=== PATIENT | male | born 1945 | race Caucasian/White ===

== ENCOUNTER 2018-10-11 02:08 | Day surgery (SDC) | payer MEDICARE, OTHER ==
[~2018-10-11] VITALS: Ht 205.7 cm; Wt 100.0 kg
[~2018-10-11 02:08] MED LIST: ALLO300 PO; AMIT25; AMIT50 PO; AMIT75 PO; Ativan1 MG PO; B-Complex With1 EACH PO; CILO100 PO; Carvedilol12.5 MG PO; Cyclobenzaprine5 MG PO; DIPATR PO; DULO30; Hydrocodone-Ap1 EA23 PO; LANS30EC PO; LISI20 PO; LORA2 PO; LOSHYD; MIRAPEX ER0.75 MG PO; NAPR250; OMEP20ER; OXYACE5T PO; OXYC10ER; PREG50; PROM25 PO; ROSU10TA; ROSU10TA PO; VITAMIN D31000 UNIT
--- NOTE | 2018-10-11 09:15 | NUR ---
PT APPEARED VERY ANXIOUS. DR. ROBERTSON CONSULTED. MALLENPATI FORM FILLED OUT, PT MEDICATED WITH VERSED 0.[address] ROBERTSON. WILL CONTINUE TO MONITOR. VSS. FAMILY AT BEDSIDE.
[2018-10-11] MEDS ORDERED: CLOP75 PO (12:56)
--- NOTE | 2018-10-11 13:45 | NUR ---
PT COMPLETED BR PERIOD WITHOUT OOZE, HEMATOMA OR OTHER SUGGESTION OF GROIN COMPLICATION. DISCHARGE TEACHING COMPLETED WITH PT AND , USING HIGHLIGHTED FORM AND VERBATIM ATTENTION TO PRIORITY ITEMS. WITHOUT QUESTIONS UPON INQUIRY ON MULTIPLE OCCASIONS. ARTERIOTOMY SITE CHECKED AFTER SITTING, STANDING AND AMBULATION. NO CHANGES TO SITE. IV DC'D WITH CANNULA INTACT. FOLDED 2X2 GAUZE PLACED WITH LIGHT COBAN WRAP. PT INSTRUCTED TO LEAVE DSG IN PLACE FOR 1H MINIMUM. PT DRESSED SELF WITH MINIMUM ASSISTANCE FROM . DC'D WITHOUT INCIDENT.
--- NOTE | 2018-10-11 14:11 | NUR ---
NEW RX FOR PLAVIX CALLED INTO [facility] PER PT REQUEST.
== END 2018-10-11 13:45 | disposition home or self-care (01) ==
LOC: MHTC 02:08
DX: I70.211 Atherosclerosis of native arteries of extremities with intermittent claudication, right leg (principal); I70.202 Unspecified atherosclerosis of native arteries of extremities, left leg; I10 Essential (primary) hypertension
CPT/HCPCS: 37221; 37224; 75625; 75716; 75774; 85347; 99152; 99153; C1760; C1769; C1876; C1887; C1894; C2623; J1644; J2250; J3010; J7030; J7040; Q9967

== ENCOUNTER 2019-11-06 10:46 | Emergency (ER) | payer MEDICARE, OTHER ==
[~2019-11-06] VITALS: Ht 175.3 cm; Wt 102.5 kg
[~2019-11-06 10:46] MED LIST changes: +CLOP75 PO; -VITAMIN D31000 UNIT; +Vitamin D2000 UNIT PO
[2019-11-06 11:20] LABS: BASOPHILS ABSOLUTE AUTO 0.14 K/mm3 (0.00-0.23); BASOPHILS PERCENT AUTO 1 % (0-2); EOSINOPHILS ABSOLUTE AUTO 0.18 K/mm3 (0.00-0.68); EOSINOPHILS PERCENT AUTO 1 % (0-6); Hematocrit 32.1 % (37.0-53.0); Hemoglobin 10.8 g/dL (13.5-17.5); IMMATURE GRAN ABSOLUTE AUTO 0.39 K/mm3 (0.00-0.10); IMMATURE GRAN PERCENT AUTO 3 % (0-1); LYMPHOCYTES PERCENT AUTO 18 % (21-46); MONOCYTES ABSOLUTE AUTO 1.22 K/mm3 (0.16-1.47); MONOCYTES PERCENT AUTO 9 % (4-13); Mean Corpuscular HGB 31.8 pg (26.0-34.0); Mean Corpuscular HGB Conc 33.6 g/dL (31.5-36.5); Mean Corpuscular Volume 94 fL (80-100); NEUTROPHILS ABSOLUTE AUTO 9.16 K/mm3 (1.96-9.15); NEUTROPHILS PERCENT AUTO 67 % (41-73); Platelet Count 305 K/mm3 (150-400); RDW Coefficient Variation 12.4 % (11.7-14.2); RDW Standard Deviation 42.9 fL (35.1-46.3); White Blood Cell Count 13.59 K/mm3 (4.00-11.30)
[2019-11-06] MEDS ORDERED: PRED20 PO (11:28)
[2019-11-06] MEDS ORDERED: AZIT250 PO (11:28)
[2019-11-06] MEDS ORDERED: PROMETHAZINE-P118 M1 PO (11:29)
[2019-11-06 11:39] LABS: Alanine Aminotransfer (ALT/SGP 21 U/L (12-78); Albumin, Blood 3.4 g/dL (3.4-5.0); Albumin/Globulin Ratio 0.8 (0.8-1.8); Alk Phos 73 U/L (50-136); Anion Gap 7 mmol/L (6-16); Aspartate Aminotrans (AST/SGOT 9 U/L (12-37); Bilirubin, Total 0.2 mg/dL (0.1-1.0); Blood Urea Nitrogen 39 mg/dL (8-24); Bun/Creatinine Ratio 18.9 (12.0-20.0); CO2, Blood 23 mmol/L (21-32); Calcium, Blood 8.8 mg/dL (8.5-10.1); Chloride, Blood 109 mmol/L (98-108); Creatinine, Blood 2.06 mg/dL (0.60-1.20); Globulin, Blood 4.5 g/dL (2.2-4.0); Glomerular Filtration Rate 34 (60-); Glucose, Blood 119 mg/dL (70-99); Potassium, Blood 4.6 mmol/L (3.5-5.5); Sodium, Blood 139 mmol/L (136-145); Total Protein, Blood 7.9 g/dL (6.4-8.2); Troponin I <0.015 ng/mL (0.000-0.040)
[2019-11-06] MEDS ORDERED: HYDR1TAB94 PO (13:22)
== END 2019-11-06 14:00 | disposition home or self-care (01) ==
LOC: ER 10:46
PROVIDERS: Emergency Medicine
DX: J06.9 Acute upper respiratory infection, unspecified (principal); S22.43XD Multiple fractures of ribs, bilateral, subsequent encounter for fracture with routine healing; I12.9 Hypertensive chronic kidney disease with stage 1 through stage 4 chronic kidney disease, or unspecified chronic kidney disease; N18.3 Chronic kidney disease, stage 3 (moderate); F32.9 Major depressive disorder, single episode, unspecified; K21.9 Gastro-esophageal reflux disease without esophagitis; Z79.899 Other long term (current) drug therapy; Z79.01 Long term (current) use of anticoagulants; Z87.891 Personal history of nicotine dependence
CPT/HCPCS: 36415; 71046; 71250; 80053; 84484; 85025; 93005; 93010; 99284-25

== ENCOUNTER 2020-04-06 12:17 | Emergency (ER) | payer OTHER, MEDICARE ==
[~2020-04-06] VITALS: Ht 175.3 cm; Wt 102.1 kg
[~2020-04-06 12:17] MED LIST changes: +ALLO100 PO; -ALLO300 PO; +AZIT250 PO; -B-Complex With1 EACH PO; +HYDR1TAB94 PO; +PRED20 PO; +PROMETHAZINE-P118 M1 PO; +Vitamin B Comple1 EA PO
[2020-04-06 12:59] LABS: BASOPHILS ABSOLUTE AUTO 0.08 K/mm3 (0.00-0.23); BASOPHILS PERCENT AUTO 1 % (0-2); EOSINOPHILS ABSOLUTE AUTO 0.02 K/mm3 (0.00-0.68); EOSINOPHILS PERCENT AUTO 0 % (0-6); Hematocrit 38.6 % (37.0-53.0); IMMATURE GRAN ABSOLUTE AUTO 0.13 K/mm3 (0.00-0.10); IMMATURE GRAN PERCENT AUTO 1 % (0-1); LYMPHOCYTES ABSOLUTE AUTO 1.14 K/mm3 (0.84-5.20); LYMPHOCYTES PERCENT AUTO 7 % (21-46); MONOCYTES ABSOLUTE AUTO 1.63 K/mm3 (0.16-1.47); MONOCYTES PERCENT AUTO 10 % (4-13); Mean Corpuscular HGB 32.2 pg (26.0-34.0); Mean Corpuscular HGB Conc 33.7 g/dL (31.5-36.5); Mean Corpuscular Volume 96 fL (80-100); Mean Platelet Volume 9.6 fL (9.1-12.4); NEUTROPHILS ABSOLUTE AUTO 13.71 K/mm3 (1.96-9.15); NEUTROPHILS PERCENT AUTO 82 % (41-73); Platelet Count 192 K/mm3 (150-400); RDW Coefficient Variation 12.5 % (11.7-14.2); RDW Standard Deviation 43.7 fL (35.1-46.3); Red Blood Cell Count 4.04 M/mm3 (4.30-5.90); White Blood Cell Count 16.71 K/mm3 (4.00-11.30)
[2020-04-06] MEDS ORDERED: LIVALO2 MG PO (13:00)
[2020-04-06] MEDS ORDERED: NEURONTIN300 MG PO (13:02)
[2020-04-06] MEDS ORDERED: GABA300 PO (13:02)
[2020-04-06 13:15] LABS: Albumin, Blood 3.4 g/dL (3.4-5.0); Albumin/Globulin Ratio 0.8 (0.8-1.8); Bilirubin, Total 0.7 mg/dL (0.1-1.0); Bun/Creatinine Ratio 9.8 (12.0-20.0); Calcium, Blood 8.5 mg/dL (8.5-10.1); Creatinine, Blood 1.74 mg/dL (0.60-1.20); Globulin, Blood 4.4 g/dL (2.2-4.0); Potassium, Blood 4.4 mmol/L (3.5-5.5); Total Protein, Blood 7.8 g/dL (6.4-8.2)
[2020-04-06 13:46] LABS: Source, Urine Clean Catch
[2020-04-06 13:50] LABS: Bilirubin, Urine Neg (Neg); Blood, Urine 2+ (Neg); Glucose Qualitative, Urine Neg (Neg); Ketones, Urine Neg (Neg); Leukocyte Esterase, Urine Neg (Neg); Nitrite, Urine Neg (Neg); Protein, Urine 3+ (Neg); Specific Gravity, Urine 1.015 (1.003-1.022); Urobilinogen, Urine NORM (Normal)
[2020-04-06 14:05] LABS: Appearance, Urine Clear (Clear); Color, Urine Yellow (P-Yellow)
[2020-04-06 14:07] LABS: White Blood Cells, Urine 0-2 /hpf (0-5)
[2020-04-06 14:08] LABS: Bacteria Few /hpf; Squamous Epithelial Cells Not Seen /hpf (Few)
[2020-04-06] MEDS ORDERED: LEVFLO500 PO (14:38)
== END 2020-04-06 14:55 | disposition home or self-care (01) ==
LOC: ER 12:17
PROVIDERS: Physician Assistant
DX: J18.9 Pneumonia, unspecified organism (principal); N39.0 Urinary tract infection, site not specified; I12.9 Hypertensive chronic kidney disease with stage 1 through stage 4 chronic kidney disease, or unspecified chronic kidney disease; N18.3 Chronic kidney disease, stage 3 (moderate); Z20.828 Contact with and (suspected) exposure to other viral communicable diseases; Z79.899 Other long term (current) drug therapy; Z87.891 Personal history of nicotine dependence
CPT/HCPCS: 36415; 71045; 80053; 81001; 85025; 93005; 93010; 96360; 99284-25; J7030; U0002

== ENCOUNTER 2021-10-29 11:03 | Inpatient (IN) | payer OTHER, MEDICARE ==
[~2021-10-29] VITALS: Ht 175.3 cm; Wt 104.0 kg
[~2021-10-29 11:03] MED LIST changes: +GABA300 PO; +LEVFLO500 PO; +LIVALO2 MG PO; +NEURONTIN300 MG PO
[2021-10-29 11:45] LABS: BASOPHILS ABSOLUTE AUTO 0.06 K/mm3 (0.00-0.23); BASOPHILS PERCENT AUTO 1 % (0-2); EOSINOPHILS ABSOLUTE AUTO 0.52 K/mm3 (0.00-0.68); EOSINOPHILS PERCENT AUTO 5 % (0-6); Hematocrit 28.3 % (37.0-53.0); Hemoglobin 9.6 g/dL (13.5-17.5); IMMATURE GRAN ABSOLUTE AUTO 0.07 K/mm3 (0.00-0.10); IMMATURE GRAN PERCENT AUTO 1 % (0-1); LYMPHOCYTES ABSOLUTE AUTO 1.15 K/mm3 (0.84-5.20); LYMPHOCYTES PERCENT AUTO 10 % (21-46); MONOCYTES PERCENT AUTO 10 % (4-13); Mean Corpuscular HGB 31.5 pg (26.0-34.0); Mean Corpuscular HGB Conc 33.9 g/dL (31.5-36.5); Mean Corpuscular Volume 93 fL (80-100); NEUTROPHILS ABSOLUTE AUTO 8.61 K/mm3 (1.96-9.15); NEUTROPHILS PERCENT AUTO 75 % (41-73); Platelet Count 287 K/mm3 (150-400); RDW Standard Deviation 44.2 fL (35.1-46.3); Red Blood Cell Count 3.05 M/mm3 (4.30-5.90); White Blood Cell Count 11.51 K/mm3 (4.00-11.30)
[2021-10-29 12:02] LABS: Alanine Aminotransfer (ALT/SGP 17 U/L (12-78); Albumin, Blood 2.8 g/dL (3.4-5.0); Albumin/Globulin Ratio 0.6 (0.8-1.8); Alk Phos 76 U/L (50-136); Anion Gap 7 mmol/L (6-16); Aspartate Aminotrans (AST/SGOT 13 U/L (12-37); Bilirubin, Total 0.5 mg/dL (0.1-1.0); Blood Urea Nitrogen 40 mg/dL (8-24); Bun/Creatinine Ratio 17.7 (12.0-20.0); CO2, Blood 23 mmol/L (21-32); Calcium, Blood 8.7 mg/dL (8.5-10.1); Chloride, Blood 106 mmol/L (98-108); Creatinine, Blood 2.26 mg/dL (0.60-1.20); Globulin, Blood 4.9 g/dL (2.2-4.0); Glomerular Filtration Rate 28 (60-); Glucose, Blood 139 mg/dL (70-99); Potassium, Blood 4.3 mmol/L (3.5-5.5); Sodium, Blood 136 mmol/L (136-145); Total Protein, Blood 7.7 g/dL (6.4-8.2); Troponin I <0.015 ng/mL (0.000-0.040)
[2021-10-29 13:19] LABS: Influenza A, PCR NEGATIVE (NEGATIVE); Influenza B, PCR NEGATIVE (NEGATIVE); Resp Syncytial Virus, PCR NEGATIVE (NEGATIVE)
[2021-10-29 13:23] LABS: SARS-Cov-2 (COVID-19) PCR, MMC POSITIVE (NEGATIVE)
[2021-10-29] MEDS ORDERED: AMLO5 PO (17:17)
[2021-10-29] MEDS ORDERED: TRAM50 PO (17:17)
[2021-10-29] MEDS ORDERED: LOSA25 PO (17:18)
[2021-10-29] MEDS ORDERED: CENTRUM SILVER1 EAC2 PO (17:18)
[2021-10-29] MEDS ORDERED: Aspir 8181 MG PO (17:18)
--- NOTE | 2021-10-30 04:26 | NUR ---
Shift note Patient AAOX3, denies pain or disconfort at this time. Patient is on 3 L N/C. Lungs clear. Pt using urinal with good amount of urine for shift. Complaint of light headed with movement. Education given. Patient stable, we will continue with monitoring patient and report any acute changes.
[2021-10-30 04:27] LABS: Hematocrit 28.6 % (37.0-53.0); Hemoglobin 9.6 g/dL (13.5-17.5); Mean Corpuscular HGB 31.4 pg (26.0-34.0); Mean Corpuscular HGB Conc 33.6 g/dL (31.5-36.5); Mean Corpuscular Volume 94 fL (80-100); Mean Platelet Volume 8.8 fL (9.1-12.4); Platelet Count 265 K/mm3 (150-400); RDW Coefficient Variation 12.9 % (11.7-14.2); Red Blood Cell Count 3.06 M/mm3 (4.30-5.90)
[2021-10-30 04:57] LABS: Albumin, Blood 2.6 g/dL (3.4-5.0); Albumin/Globulin Ratio 0.5 (0.8-1.8); Bilirubin, Total 0.5 mg/dL (0.1-1.0); Bun/Creatinine Ratio 21.9 (12.0-20.0); Calcium, Blood 8.7 mg/dL (8.5-10.1); Creatinine, Blood 1.87 mg/dL (0.60-1.20); Globulin, Blood 5.3 g/dL (2.2-4.0); Magnesium, Blood 2.5 mg/dL (1.6-2.4); Potassium, Blood 4.9 mmol/L (3.5-5.5); Total Protein, Blood 7.9 g/dL (6.4-8.2)
--- NOTE | 2021-10-30 05:47 | NUR ---
WILL REPORT TO AM SHIFT, THAT ORTHOSTATIC VS ARE ORDERED.
--- NOTE | 2021-10-30 18:50 | NUR ---
SHIFT SUMMARY PT A/O X2/3 AND PLEASANT. ADMITTED FOR COVID 19 AND HEMOPTYSIS. HEPARIN HELD DUE TO HEMOPTYSIS. PT CURRENTLY ON 5 LITERS O2 AND DESATS WITH EXERTION. PT DOES FEEL WELL ENOUGH TO GET OUT OF BED AND AMBULATE. PE STUDY IN ED CAME BACK NEGATIVE. VSS.
--- NOTE | 2021-10-31 08:35 | NUR ---
SUMMARY PT ALERT,DENIES SOB, DID NOT DESAT BELOW 90% TONIGHT.
--- NOTE | 2021-10-31 16:08 | NUR ---
SHIFT SUMMARY PT AxOx4. PLEASANT AND COOPERATIVE WITH CARE. PT HAD SOME ANXIOUS/IRRITABLE BEHAVIORS THIS SHIFT. PT STATES HE DOES NOT LIKE BEING HERE, BUT HE IS NOT THREATENING TO LEAVE. PT INDEPENDENT IN THE ROOM. CALLS APPROPRIATELY. PT O2 IS WEANED DOWN TO 2L AT THIS TIME. SAT'S >95%. DENIES SOB. LS COARSE AT THE BASES. PT IS CURRENTLY RESTING IN BED TALKING ON PHONE. UPDATED DAUGHTER ON PLAN OF CARE. CALL LIGHT IN REACH. PT MEDICATED FOR PAIN x1 THIS SHIFT. VITALS REVIEWED. PT DENIES ANY NEEDS AT THIS TIME.
--- NOTE | 2021-11-01 05:05 | NUR ---
PATIENT CALM AND PLESANT C/O PAIN 5/10 TO HIS DEVAN LEGS ASSESSMENT DONE NO EDEMA OR SWOLLEN NOTED TRAMADOL ADM WITH POSITUVE EFFECT
[2021-11-01] MEDS ORDERED: DEXA2 PO (17:07)
--- NOTE | 2021-11-01 17:44 | NUR ---
DISCHARGE NOTE- 4524 PATIENTS IV WAS REMOVED WITHOUT CONCERN. PATIENTS DISCHARGE INSTRUCTIONS, INCLUDING HOME OXYGEN USE, MEDICATION, AND COVID EDUCATION WERE DISCUSSED WITH THE PATIENT. HE VERBALIZED UNDERSTANDING. PATIENTS DAUGHTER WAITING DOWNSTAIRS TO SAGGER SOAK PATIENT. HE WAS WHEELED OUT BY BRADY RUSSELL, HAPPY TO BE LEAVING AND THANKING STAFF FOR HIS CARE.
== END 2021-11-01 17:42 | disposition home or self-care (01) | DRG 177 ==
LOC: ER 11:03 → ERHOLD 15:27 → MEDS 16:26
PROVIDERS: Emergency Medicine; Nurse Practitioner Acute Care; Physician Assistant; ADMIT Hospitalist
PROC: 8E0ZXY6 Isolation (ICD-10-PCS; principal; 2021-10-29)
PROC: 3E0333Z Introduction of Anti-inflammatory into Peripheral Vein, Percutaneous Approach (ICD-10-PCS; 2021-10-29)
PROC: XW0DXM6 Introduction of Baricitinib into Mouth and Pharynx, External Approach, New Technology Group 6 (ICD-10-PCS; 2021-10-29)
PROC: 3E0DX3Z Introduction of Anti-inflammatory into Mouth and Pharynx, External Approach (ICD-10-PCS; 2021-10-29)
DX: U07.1 COVID-19 (principal); J96.01 Acute respiratory failure with hypoxia; J12.82 Pneumonia due to coronavirus disease 2019; R04.2 Hemoptysis; K21.9 Gastro-esophageal reflux disease without esophagitis; I12.9 Hypertensive chronic kidney disease with stage 1 through stage 4 chronic kidney disease, or unspecified chronic kidney disease; F32.A Depression, unspecified; N18.30 Chronic kidney disease, stage 3 unspecified; I73.9 Peripheral vascular disease, unspecified; E78.5 Hyperlipidemia, unspecified; E66.01 Morbid (severe) obesity due to excess calories; Z68.35 Body mass index [BMI] 35.0-35.9, adult; Z98.890 Other specified postprocedural states; Z87.891 Personal history of nicotine dependence; Z79.02 Long term (current) use of antithrombotics/antiplatelets; Z79.2 Long term (current) use of antibiotics; Z79.899 Other long term (current) drug therapy
CPT/HCPCS: 0241U; 36415; 71045; 71260; 80053; 83605; 83735; 84145; 84484; 85025; 85027; 87040; 93005; 93010; 94761; 94762; 96372; 96374; 96375; 99285-25; A9270; C9399; J0696; J1100; J1644; J7040; Q9967

== ENCOUNTER 2022-03-21 11:58 | Inpatient (IN) | payer OTHER ==
[~2022-03-21] VITALS: Ht 177.8 cm; Wt 109.5 kg
[~2022-03-21 11:58] MED LIST changes: +AMLO5 PO; +Aspir 8181 MG PO; +CENTRUM SILVER1 EAC2 PO; +DEXA2 PO; +LOSA25 PO; +TRAM50 PO
[2022-03-21 12:16] LABS: BASOPHILS ABSOLUTE AUTO 0.11 K/mm3 (0.00-0.23); BASOPHILS PERCENT AUTO 1 % (0-2); EOSINOPHILS ABSOLUTE AUTO 0.18 K/mm3 (0.00-0.68); EOSINOPHILS PERCENT AUTO 1 % (0-6); Hematocrit 28.7 % (37.0-53.0); Hemoglobin 9.6 g/dL (13.5-17.5); IMMATURE GRAN ABSOLUTE AUTO 0.11 K/mm3 (0.00-0.10); IMMATURE GRAN PERCENT AUTO 1 % (0-1); LYMPHOCYTES ABSOLUTE AUTO 1.84 K/mm3 (0.84-5.20); LYMPHOCYTES PERCENT AUTO 11 % (21-46); MONOCYTES ABSOLUTE AUTO 1.72 K/mm3 (0.16-1.47); MONOCYTES PERCENT AUTO 11 % (4-13); Mean Corpuscular HGB 31.9 pg (26.0-34.0); Mean Corpuscular HGB Conc 33.4 g/dL (31.5-36.5); Mean Corpuscular Volume 95 fL (80-100); Mean Platelet Volume 9.1 fL (9.1-12.4); NEUTROPHILS ABSOLUTE AUTO 12.44 K/mm3 (1.96-9.15); NEUTROPHILS PERCENT AUTO 76 % (41-73); Platelet Count 224 K/mm3 (150-400); RDW Standard Deviation 51.8 fL (35.1-46.3); Red Blood Cell Count 3.01 M/mm3 (4.30-5.90)
[2022-03-21 12:27] LABS: Bicarbonate Venous 25.4 mmol/L (24.0-30.0); PCO2 Venous 36.2 mmHg (38-42); PO2 Venous 111 mmHg (38-42); pH Blood Venous 7.45 (7.34-7.37)
[2022-03-21 12:42] LABS: Albumin, Blood 3.1 g/dL (3.4-5.0); Albumin/Globulin Ratio 0.8 (0.8-1.8); Bun/Creatinine Ratio 14.3 (12.0-20.0); Calcium, Blood 8.7 mg/dL (8.5-10.1); Creatinine, Blood 2.1 mg/dL (0.60-1.20); Globulin, Blood 4.1 g/dL (2.2-4.0); Potassium, Blood 4.7 mmol/L (3.5-5.5); Total Protein, Blood 7.2 g/dL (6.4-8.2)
[2022-03-21 12:59] LABS: Influenza A, PCR NEGATIVE (NEGATIVE); Influenza B, PCR NEGATIVE (NEGATIVE); Resp Syncytial Virus, PCR NEGATIVE (NEGATIVE); SARS-Cov-2 (COVID-19) PCR, MMC NEGATIVE (NEGATIVE)
[2022-03-21] MEDS ORDERED: GABA300 PO (18:28)
[2022-03-21] MEDS ORDERED: EZET10 PO (18:43)
--- NOTE | 2022-03-21 19:38 | NUR ---
Admit note Received report from Quynh Knox in ed. Pt to room approx 1801, 4 person assist with slider sheet to bed. Pt and spouse oriented to room and call light. Educated on fall risk. Pt on 6l o2 via nc, spo2 90-94%, desaturates with activty. Alert, oriented. VSS. report given to oncoming rn.
--- NOTE | 2022-03-21 19:45 | NUR ---
HOME MEDICATIONS PATIENT REQUESTING HE HAVE HIS BEDTIME HOME MEDS RESTARTED. CALL PLACED TO HOSPITALIST. PER HOSPITALIST, OK TO RESTART. SEE UPDATED MAR.
--- NOTE | 2022-03-21 20:00 | NUR ---
1999 PATIENT O2 SAT LOW 70% ON 6L NC, THIS RN TO ROOM TO FIND PATIENT TRYING TO GRAB HIS PHONE FROM THE PRESSING DEPARTMENT SUPERVISOR. 10L OXYMIZER PUT IN PLACE WITH O2 SAT MID 90s. PATIENT EDUCATED ON INCREASING O2 REQUIREMENTS AND TO UTILIZE CALL LIGHT IF HE NEEDS ASSISTANCE TO PREVENT RESPIRATORY DISTRESS. PATIENT AGREED AND UNDERSTANDING. CPAP AT BEDSIDE FOR WHEN PATIENT FALLS ASLEEP.
[2022-03-22 04:12] LABS: BASOPHILS ABSOLUTE AUTO 0.02 K/mm3 (0.00-0.23); BASOPHILS PERCENT AUTO 0 % (0-2); EOSINOPHILS PERCENT AUTO 0 % (0-6); Hematocrit 27.6 % (37.0-53.0); Hemoglobin 9.1 g/dL (13.5-17.5); IMMATURE GRAN ABSOLUTE AUTO 0.14 K/mm3 (0.00-0.10); IMMATURE GRAN PERCENT AUTO 1 % (0-1); LYMPHOCYTES ABSOLUTE AUTO 0.92 K/mm3 (0.84-5.20); LYMPHOCYTES PERCENT AUTO 7 % (21-46); MONOCYTES ABSOLUTE AUTO 0.36 K/mm3 (0.16-1.47); MONOCYTES PERCENT AUTO 3 % (4-13); Mean Corpuscular HGB 31.5 pg (26.0-34.0); Mean Corpuscular Volume 96 fL (80-100); Mean Platelet Volume 9.5 fL (9.1-12.4); NEUTROPHILS ABSOLUTE AUTO 12.13 K/mm3 (1.96-9.15); NEUTROPHILS PERCENT AUTO 89 % (41-73); Platelet Count 219 K/mm3 (150-400); RDW Coefficient Variation 14.6 % (11.7-14.2); RDW Standard Deviation 50.9 fL (35.1-46.3); Red Blood Cell Count 2.89 M/mm3 (4.30-5.90); White Blood Cell Count 13.57 K/mm3 (4.00-11.30)
[2022-03-22 04:35] LABS: Bun/Creatinine Ratio 17.3 (12.0-20.0); Calcium, Blood 8.8 mg/dL (8.5-10.1); Creatinine, Blood 2.25 mg/dL (0.60-1.20); Potassium, Blood 4.5 mmol/L (3.5-5.5)
--- NOTE | 2022-03-22 06:02 | NUR ---
SHIFT SUMMARY PATIENT ALERT AND ORIENTED x4. [place]. ABLE TO ANSWER QUESTIONS APPROPRIATLEY AND MAKE NEEDS KNOWN TO STAFF. VSS, PATIENT BEGAN THE SHIFT ON 6L NC. PATIENT DESATS WITH ACITIVITY AND WAS INCREASED TO 10L OXYMIZER, SEE PREVIOUS NOTE. CPAP IN USE OVERNIGHT. O2 SAT MAINTAINED >90%. AFTER 2100 MEDS WERE GIVEN, PATIENT WAS ABLE TO SLEEP FOR MAJORITY OF SHIFT. NO OTHER ACUTE CHANGES THIS SHIFT, WILL REPORT TO DAY SHIFT RN.
--- NOTE | 2022-03-22 06:30 | NUR ---
UPDATE 75 MLs OF URINE OUT THIS SHIFT. BLADDER SCAN PERFORMED. 541 MLs IN BLADDER. DISCUSSED WITH PATIENT ABOUT POSSIBILITY OF STRAIGHT CATH TO EMPTY BLADDER. PATIENT STATES "PLEASE LET ME TRY TO PEE BEFORE YOU STICK THAT THING IN ME. I DO NOT WANT THAT". RN AND PATIENT STANDING AT BEDSIDE WITH URINAL IN AN ATTEMPT TO URINATE. SPOKE WITH TENON MACHINE OPERATOR, NO CALL PLACED TO HOSPITALIST AT THIS TIME. WILL PASS ALONG TO DAY SHIFT RN.
--- NOTE | 2022-03-22 07:29 | NUR ---
Am note Pt alert, oriented x3. Pt sitting upon side of bed attempting to pee, pt states he has fallen asleep multiple times while sitting up. Pt moves self in bed. Pt denies pain, chest pain/pressure, sob, nausea, and dizziness. Pt report ble numb/tingling. Pt tele sinus 90's, bp stable. Ls fine crackle t/o, spo2 >90% on 6l o2 via nc, titrated to 5l o2 via nc, resp even and unlabored. Abd moderate distention, firm, nontender. bladder scan on previous shift show retention, pt refusing straight/avendaño catheter at this time. Other vss. No s/s of distress noted. Will continue to monitor.
[2022-03-22] MEDS ORDERED: FURO20 PO (08:42)
[2022-03-22 12:35] LABS: Source, Urine Foley catheter
[2022-03-22 12:38] LABS: Appearance, Urine Clear (Clear); Bilirubin, Urine Neg (Neg); Blood, Urine Neg (Neg); Color, Urine Yellow (P-Yellow); Glucose Qualitative, Urine 2+ (Neg); Ketones, Urine Neg (Neg); Leukocyte Esterase, Urine Neg (Neg); Nitrite, Urine Neg (Neg); Protein, Urine 4+ (Neg); Urobilinogen, Urine NORM (Normal)
[2022-03-22 12:47] LABS: Bacteria Not Seen /hpf; Red Blood Cells, Urine 0-2 /hpf (0-2); Squamous Epithelial Cells Rare /hpf (Few); White Blood Cells, Urine 0-2 /hpf (0-5)
--- NOTE | 2022-03-22 13:38 | NUR ---
Patient agreeable to straight cath, attempted but very painful for patient. Notified Dr Gee, new order for uro jet, placed 14 fr coude, still painful but tolerated well with urojet. Will continue to monitor.
--- NOTE | 2022-03-22 15:33 | NUR ---
Shift Summary No acute changes noted. Cervantes in place, patent and draining. Spo2 >90% on 5l o2 via nc. Other vss. Blood glucose checks started, lunch time 287, notified Dr Gee, new orders entered. Patient, spouse and daughter educated on insulin administration. Pt appears to be sleeping intermittently. Will continue to monitor until report given to oncoming rn.
--- NOTE | 2022-03-22 19:29 | NUR ---
Pt continues to report pain to avendaño catheter site, notified Dr Gee, new orders for fentayl, administered with positive results.
[2022-03-23 04:34] LABS: BASOPHILS ABSOLUTE AUTO 0.04 K/mm3 (0.00-0.23); BASOPHILS PERCENT AUTO 0 % (0-2); EOSINOPHILS PERCENT AUTO 0 % (0-6); Hematocrit 26.8 % (37.0-53.0); IMMATURE GRAN ABSOLUTE AUTO 0.24 K/mm3 (0.00-0.10); IMMATURE GRAN PERCENT AUTO 1 % (0-1); LYMPHOCYTES ABSOLUTE AUTO 1.19 K/mm3 (0.84-5.20); LYMPHOCYTES PERCENT AUTO 5 % (21-46); MONOCYTES ABSOLUTE AUTO 1.11 K/mm3 (0.16-1.47); MONOCYTES PERCENT AUTO 5 % (4-13); Mean Corpuscular HGB 32.1 pg (26.0-34.0); Mean Corpuscular HGB Conc 33.6 g/dL (31.5-36.5); Mean Corpuscular Volume 96 fL (80-100); Mean Platelet Volume 9.5 fL (9.1-12.4); NEUTROPHILS PERCENT AUTO 89 % (41-73); Platelet Count 227 K/mm3 (150-400); RDW Coefficient Variation 14.4 % (11.7-14.2); RDW Standard Deviation 50.8 fL (35.1-46.3); White Blood Cell Count 24.38 K/mm3 (4.00-11.30)
[2022-03-23 05:00] LABS: Bun/Creatinine Ratio 21.4 (12.0-20.0); Calcium, Blood 8.7 mg/dL (8.5-10.1); Creatinine, Blood 1.96 mg/dL (0.60-1.20); Potassium, Blood 4.6 mmol/L (3.5-5.5)
--- NOTE | 2022-03-23 05:22 | NUR ---
SHIFT SUMMARY PATIENT ALERT AND ORIENTED, ABLE TO MAKE NEEDS KNOWN TO STAFF AND USES CALL LIGHT APPROPRIATELY. VSS. PATIENT ON 5L NC WHILE AWAKE, USES CPAP WHILE SLEEPING. 02 SAT MAINTINING >90%. NO ACUTE CHANGES OVERNIGHT. BREWER IN PLACE DRAINING YELLOW URINE TO GRAVITY. PATIENT REPORTING PAIN FROM BREWER INSERTION AT START OF SHIFT AND HOLDING ICE PACK TO AFFECTED AREA. PATIENT SLEPT THROUGH THE NIGHT AFTER 2100 MEDS WERE ADMINISTERED. NO COMPLAINTS OF PAIN. ABLE TO TURN SELF IN BED. CALL LIGHT IN REACH, WILL REPORT TO DAY SHIFT RN.
--- NOTE | 2022-03-23 16:57 | NUR ---
PT AND FAMILY TRANSPORTED TO MEDICAL FLOOR WITH ALL BELONGINGS WITH THEM INCLUDING PHONE. PT AND FAMILY EXPRESSED CONCERNS FROM TRANSFER TO ANOTHER FLOOR, PCU LONG WINDER TENDER NAYAN WAS IN TO TALK TO FAMILY AND PT ABOUT CONCERNS. BREWER WAS UNCLAMPED AND DRAINED PRIOR TO TRANSPORT TO MEDICAL FLOOR, I&Os UPDATED. PT MEDICATED WITH ROCEPHIN PRIOR TO TRANSPORT.
--- NOTE | 2022-03-23 17:16 | NUR ---
SHIFT SUMMARY PATIENT IS ALERT AND ORIENTED X4. PATIENT IS A STANDBY ASSIST TO BATHROOM. PATIENT WILL BE BLADDER TRAINING TONIGHT. PATIENT IS ON 4L NC. PATIENTS HAS BEEN WITH PATIENT SINCE ARRIVAL FROM PCU. NO ACUTE EVENTS THIS SHIFT. VITAL SIGNS REVIEWED. BED IN LOCKED AND LOWEST POSITION. CALL LIGHT IN PLACE. WILL MONITOR UNTIL SHIFT CHANGE.
--- NOTE | 2022-03-24 06:22 | NUR ---
PT IS A/O, LAC COURTE OREILLES, MEDICATED THIS SHIFT FOR PAIN IN BIG TOE FROM A PREVIOUS INJURY. BLADDER TRAINING PERFORMED THIS SHIFT. PT HAS FREQUENT URGENCY. CPAP AT HS.
[2022-03-24 10:02] LABS: BASOPHILS ABSOLUTE AUTO 0.06 K/mm3 (0.00-0.23); BASOPHILS PERCENT AUTO 1 % (0-2); EOSINOPHILS ABSOLUTE AUTO 0.17 K/mm3 (0.00-0.68); EOSINOPHILS PERCENT AUTO 1 % (0-6); Hematocrit 32.3 % (37.0-53.0); Hemoglobin 10.4 g/dL (13.5-17.5); IMMATURE GRAN ABSOLUTE AUTO 0.16 K/mm3 (0.00-0.10); IMMATURE GRAN PERCENT AUTO 1 % (0-1); LYMPHOCYTES ABSOLUTE AUTO 2.18 K/mm3 (0.84-5.20); LYMPHOCYTES PERCENT AUTO 17 % (21-46); MONOCYTES ABSOLUTE AUTO 1.16 K/mm3 (0.16-1.47); MONOCYTES PERCENT AUTO 9 % (4-13); Mean Corpuscular HGB 31.5 pg (26.0-34.0); Mean Corpuscular HGB Conc 32.2 g/dL (31.5-36.5); Mean Corpuscular Volume 98 fL (80-100); Mean Platelet Volume 9.3 fL (9.1-12.4); NEUTROPHILS ABSOLUTE AUTO 9.47 K/mm3 (1.96-9.15); NEUTROPHILS PERCENT AUTO 72 % (41-73); NRBC ABSOLUTE 0.02 K/mm3 (0.00-0.02); NRBC Auto 0.2 /100 WBC (0.0-0.2); Platelet Count 271 K/mm3 (150-400); RDW Coefficient Variation 14.7 % (11.7-14.2); RDW Standard Deviation 52.5 fL (35.1-46.3)
[2022-03-24 10:18] LABS: Bun/Creatinine Ratio 20.9 (12.0-20.0); Calcium, Blood 8.8 mg/dL (8.5-10.1); Creatinine, Blood 1.72 mg/dL (0.60-1.20); Potassium, Blood 3.9 mmol/L (3.5-5.5)
--- NOTE | 2022-03-24 15:57 | NUR ---
SHIFT SUMMARY PATIENT IS ALERT AND ORIENTED. PATIENT HAS BEEN PLEASENT AND COOPERATIVE WITH CARE THIS SHIFT. PATIENTS HAS BEEN WITH PATIENT MOST OF DAY AND ASSISTED WITH CARE. PATIENT IS STILL ON 4L NASAL CANNULA SATTING ABOVE 90 PERCENT AND DESATS QUICKLY WITH EXERTION. PATIENT GOT A SHOWER TODAY. PATIENT HAS HAD BREWER CATHETER DISCONTINUED TODAY. PATIENT HAS URINATED PER PATIENT. POSSIBLE DISCHARGE TOMORROW PER DR. PATIENT HAS HAD NO ACUTE EVENTS THIS SHIFT. PATIENT HAS HAD NO COMPLAINTS OF NAUSEA, PAIN, SOB OR VOMITTING THIS SHIFT. BED IN LOCKED AND LOWEST POSITION. CALL LIGHT IN PLACE. WILL MONITOR UNTIL SHIFT CHANGE.
[2022-03-25 05:39] LABS: BASOPHILS ABSOLUTE AUTO 0.08 K/mm3 (0.00-0.23); BASOPHILS PERCENT AUTO 1 % (0-2); EOSINOPHILS ABSOLUTE AUTO 0.27 K/mm3 (0.00-0.68); EOSINOPHILS PERCENT AUTO 3 % (0-6); Hematocrit 30.5 % (37.0-53.0); Hemoglobin 9.8 g/dL (13.5-17.5); IMMATURE GRAN ABSOLUTE AUTO 0.16 K/mm3 (0.00-0.10); IMMATURE GRAN PERCENT AUTO 2 % (0-1); LYMPHOCYTES ABSOLUTE AUTO 1.64 K/mm3 (0.84-5.20); LYMPHOCYTES PERCENT AUTO 18 % (21-46); MONOCYTES ABSOLUTE AUTO 0.82 K/mm3 (0.16-1.47); MONOCYTES PERCENT AUTO 9 % (4-13); Mean Corpuscular HGB 31.5 pg (26.0-34.0); Mean Corpuscular HGB Conc 32.1 g/dL (31.5-36.5); Mean Corpuscular Volume 98 fL (80-100); Mean Platelet Volume 9.4 fL (9.1-12.4); NEUTROPHILS PERCENT AUTO 68 % (41-73); Platelet Count 243 K/mm3 (150-400); RDW Coefficient Variation 14.8 % (11.7-14.2); RDW Standard Deviation 52.8 fL (35.1-46.3); Red Blood Cell Count 3.11 M/mm3 (4.30-5.90); White Blood Cell Count 9.17 K/mm3 (4.00-11.30)
--- NOTE | 2022-03-25 06:06 | NUR ---
PT IS A/O, VERY BEAVER, CPAP AT HS, 4L N/C O2 DURING DAYTIME. STANDBY ASSIST TO RESTROOM.
--- NOTE | 2022-03-25 06:30 | NUR ---
PT UP TO RESTROOM THIS AM URINATED 200, BLADDERSCAN POST VOID = [phone]. DR BATRES CALLED T/O FOR STRAIGHT CATH X1 RECIEVED. PT UP TO RESTROOM AGAIN AND URINATED 425. REPORT WILL BE GIVEN TO ONCOMING SHIFT REGARDING.
[2022-03-25] MEDS ORDERED: VISBIOME 112.51 EACH PO (11:17)
[2022-03-25] MEDS ORDERED: CEFP200 PO (11:18)
[2022-03-25] MEDS ORDERED: POTA8 PO (11:21)
--- NOTE | 2022-03-25 12:04 | NUR ---
DISCHARGE SUMMARY PATIENT IS ALERT AND ORIENTED X4. PATIENT IS HARD OF HEARING. PATIENT HAS HAD NO ACUTE EVENTS THIS SHIFT. VITAL SIGNS REVIEWED. PATIENT HAS HAD A HOME O2 EVAL DONE AND PATIENT AND WERE EDUCATED ON THE OXYGEN REQUIREMENTS NEEDED AT HOME. PATIENT AND WERE EDUCATED ON DISCHARGE INSTRUCTIONS AND FOLLOWUP APPOINTMENTS NEEDED AFTER DISCHARGE. PATIENT WAS WHEELED DOWN BY BRADY PENNINGTON TO PATIENTS CAR. PATIENTS IS DRIVING PATIENT HOME.
[2022-03-25] MEDS ORDERED: GUAI600T33 PO (12:09)
== END 2022-03-25 12:00 | disposition home or self-care (01) | DRG 871 ==
LOC: ER 11:58 → PCU 17:23 → MEDS 03-23 16:15
PROVIDERS: Emergency Medicine; Internal Medicine; Nurse Practitioner Acute Care; ADMIT Hospitalist
PROC: 5A09357 Assistance with Respiratory Ventilation, Less than 24 Consecutive Hours, Continuous Positive Airway Pressure (ICD-10-PCS; principal; 2022-03-21)
PROC: 3E03329 Introduction of Other Anti-infective into Peripheral Vein, Percutaneous Approach (ICD-10-PCS; 2022-03-21)
DX: A41.9 Sepsis, unspecified organism (principal); J18.9 Pneumonia, unspecified organism; J96.21 Acute and chronic respiratory failure with hypoxia; R65.20 Severe sepsis without septic shock; N18.30 Chronic kidney disease, stage 3 unspecified; I12.9 Hypertensive chronic kidney disease with stage 1 through stage 4 chronic kidney disease, or unspecified chronic kidney disease; Z20.822 Contact with and (suspected) exposure to COVID-19; E66.01 Morbid (severe) obesity due to excess calories; K21.9 Gastro-esophageal reflux disease without esophagitis; Z99.81 Dependence on supplemental oxygen; Z98.890 Other specified postprocedural states; E78.5 Hyperlipidemia, unspecified; Z79.899 Other long term (current) drug therapy; F32.A Depression, unspecified; Z87.891 Personal history of nicotine dependence; Z95.820 Peripheral vascular angioplasty status with implants and grafts; E11.22 Type 2 diabetes mellitus with diabetic chronic kidney disease; U09.9 Post COVID-19 condition, unspecified
CPT/HCPCS: 0241U; 36415; 71045; 76770; 80048; 80053; 81001; 82803; 82947; 83036; 83735; 83880; 84145; 85025; 93005; 93010; 94660; 94761; 94762; 96374; 99285-25; A9270; G0103; J0696; J1644; J3010; J7512

== ENCOUNTER 2022-04-07 16:45 | Emergency (ER) | payer OTHER ==
[~2022-04-07] VITALS: Ht 177.8 cm; Wt 99.8 kg
[~2022-04-07 16:45] MED LIST changes: +CEFP200 PO; +EZET10 PO; +FURO20 PO; +GUAI600T33 PO; +POTA8 PO; +VISBIOME 112.51 EACH PO
[2022-04-07 17:29] LABS: BASOPHILS ABSOLUTE AUTO 0.13 K/mm3 (0.00-0.23); BASOPHILS PERCENT AUTO 1 % (0-2); EOSINOPHILS ABSOLUTE AUTO 0.37 K/mm3 (0.00-0.68); EOSINOPHILS PERCENT AUTO 3 % (0-6); Hematocrit 27.9 % (37.0-53.0); Hemoglobin 9.3 g/dL (13.5-17.5); IMMATURE GRAN ABSOLUTE AUTO 0.09 K/mm3 (0.00-0.10); IMMATURE GRAN PERCENT AUTO 1 % (0-1); LYMPHOCYTES PERCENT AUTO 11 % (21-46); MONOCYTES ABSOLUTE AUTO 1.06 K/mm3 (0.16-1.47); MONOCYTES PERCENT AUTO 7 % (4-13); Mean Corpuscular HGB 31.3 pg (26.0-34.0); Mean Corpuscular HGB Conc 33.3 g/dL (31.5-36.5); Mean Corpuscular Volume 94 fL (80-100); Mean Platelet Volume 9.5 fL (9.1-12.4); NEUTROPHILS ABSOLUTE AUTO 10.98 K/mm3 (1.96-9.15); NEUTROPHILS PERCENT AUTO 77 % (41-73); Platelet Count 296 K/mm3 (150-400); RDW Coefficient Variation 13.3 % (11.7-14.2); RDW Standard Deviation 45.7 fL (35.1-46.3); Red Blood Cell Count 2.97 M/mm3 (4.30-5.90); White Blood Cell Count 14.23 K/mm3 (4.00-11.30)
[2022-04-07 17:49] LABS: Albumin/Globulin Ratio 0.7 (0.8-1.8); Bilirubin, Total 0.4 mg/dL (0.1-1.0); Creatinine, Blood 1.92 mg/dL (0.60-1.20); Globulin, Blood 4.5 g/dL (2.2-4.0); Potassium, Blood 3.7 mmol/L (3.5-5.5); Total Protein, Blood 7.5 g/dL (6.4-8.2)
[2022-04-07 19:33] LABS: Influenza A, PCR NEGATIVE (NEGATIVE); Influenza B, PCR NEGATIVE (NEGATIVE); Resp Syncytial Virus, PCR NEGATIVE (NEGATIVE); SARS-Cov-2 (COVID-19) PCR, MMC NEGATIVE (NEGATIVE)
[2022-04-07] MEDS ORDERED: LEVO750 PO (20:31)
== END 2022-04-07 22:30 | disposition home or self-care (01) ==
LOC: ER 16:45
PROVIDERS: Student in an Organized Health Care Education/Training Program
DX: J18.9 Pneumonia, unspecified organism (principal); I12.9 Hypertensive chronic kidney disease with stage 1 through stage 4 chronic kidney disease, or unspecified chronic kidney disease; N18.30 Chronic kidney disease, stage 3 unspecified; E78.5 Hyperlipidemia, unspecified; Z20.822 Contact with and (suspected) exposure to COVID-19; Z79.899 Other long term (current) drug therapy; Z87.891 Personal history of nicotine dependence; Z99.81 Dependence on supplemental oxygen
CPT/HCPCS: 0241U; 36415; 71046; 71260; 80053; 83880; 84484; 85025; 85379; 93005; 93010; 96365; 96366; 96375; 99285-25; J0456; J0696; J7030; J7050; Q9967

== ENCOUNTER 2022-07-06 13:38 | Inpatient (IN) | payer MEDICARE, OTHER ==
[~2022-07-06] VITALS: Ht 175.3 cm; Wt 113.6 kg
[~2022-07-06 13:38] MED LIST changes: +LEVO750 PO; -POTA8 PO; +POTCHL20ER PO
[2022-07-06 14:59] LABS: BASOPHILS ABSOLUTE AUTO 0.06 K/mm3 (0.00-0.23); BASOPHILS PERCENT AUTO 0 % (0-2); EOSINOPHILS PERCENT AUTO 0 % (0-6); Hematocrit 27.8 % (37.0-53.0); Hemoglobin 8.9 g/dL (13.5-17.5); IMMATURE GRAN ABSOLUTE AUTO 0.45 K/mm3 (0.00-0.10); IMMATURE GRAN PERCENT AUTO 3 % (0-1); LYMPHOCYTES ABSOLUTE AUTO 0.88 K/mm3 (0.84-5.20); LYMPHOCYTES PERCENT AUTO 5 % (21-46); MONOCYTES ABSOLUTE AUTO 0.26 K/mm3 (0.16-1.47); MONOCYTES PERCENT AUTO 2 % (4-13); Mean Corpuscular HGB 30.6 pg (26.0-34.0); Mean Corpuscular Volume 96 fL (80-100); Mean Platelet Volume 9.6 fL (9.1-12.4); NEUTROPHILS ABSOLUTE AUTO 15.07 K/mm3 (1.96-9.15); NEUTROPHILS PERCENT AUTO 90 % (41-73); NRBC ABSOLUTE 0.03 K/mm3 (0.00-0.02); NRBC Auto 0.2 /100 WBC (0.0-0.2); Platelet Count 275 K/mm3 (150-400); RDW Coefficient Variation 15.6 % (11.7-14.2); RDW Standard Deviation 53.1 fL (35.1-46.3); Red Blood Cell Count 2.91 M/mm3 (4.30-5.90); White Blood Cell Count 16.72 K/mm3 (4.00-11.30)
[2022-07-06 15:33] LABS: Albumin, Blood 2.7 g/dL (3.4-5.0); Albumin/Globulin Ratio 0.6 (0.8-1.8); Bilirubin, Total 0.4 mg/dL (0.1-1.0); Bun/Creatinine Ratio 15.9 (12.0-20.0); Calcium, Blood 8.2 mg/dL (8.5-10.1); Creatinine, Blood 2.71 mg/dL (0.60-1.20); Globulin, Blood 4.2 g/dL (2.2-4.0); Potassium, Blood 5.1 mmol/L (3.5-5.5); Total Protein, Blood 6.9 g/dL (6.4-8.2)
--- NOTE | 2022-07-06 15:50 | NUR ---
hayder dumas of critical lab value @1510
--- NOTE | 2022-07-06 18:09 | NUR ---
SHIFT SUMMARY- PT ANXIOUS AT TIMES. PT WILL AMBULATE TO URINATE WITH SBA. PT SOB WITH ACTIVITY. PT RESTING COMFORTABLY NOW WITH FAMILY AT BEDSIDE. CALL LIGHT IN REACH.
[2022-07-06 18:49] LABS: Glucose, Blood 711 mg/dL (70-99)
[2022-07-06] MEDS ORDERED: PANTOPRAZOLE SO40 M2 PO (19:47)
[2022-07-06] MEDS ORDERED: LOSARTAN POTASS25 M2 PO (19:52)
[2022-07-06] MEDS ORDERED: Cellcept500 MG PO (19:53)
[2022-07-06 19:55] LABS: Glucose, Blood 689 mg/dL (70-99)
[2022-07-06] MEDS ORDERED: PRED20 PO (19:56)
[2022-07-06] MEDS ORDERED: GLIP2.5ER PO (19:57)
[2022-07-06] MEDS ORDERED: NYSTATIN100000 U10 PO (19:58)
[2022-07-06] MEDS ORDERED: BUMETANIDE2 M6 PO (20:00)
[2022-07-06 21:17] LABS: Glucose, Blood 681 mg/dL (70-99)
[2022-07-06 23:22] LABS: Glucose, Blood 532 mg/dL (70-99)
--- NOTE | 2022-07-07 04:00 | NUR ---
SHIFT SUMMARY; PATIENT HAS ELEVATED CHEM BG THROUGHOUT THE NIGHT AND IS MEDICATED PER VERBAL ORDERS WITH 15 UNITS INSULIN SC HIGH SLIDING SCALE. ALSO ORDERS LANTUS OF 40 UNITS SC X 1 DURING NIGHT. PATIENT IS VERY CONFUSED DURING NIGHT AND CONTUOUSLY TAKES OFF HIS OXYGEN AND SATS DROP VERY RAPIDLY. HE RECOVERS SLOWLY TO >90%. PATIENT REPEATEDLY TAKES OFF HIS FINGER PROBE AND TRIES TO GET OUT OF BED. HE IS REORIENTED REPEATEDLY TO TIME PLACE AND EVENT. AT THIS TIME HIS FINGER SAT PROBE IS ON HIS RIGHT FOOT GREAT TOE TO KEEP PATIENT FROM PULLING IT OFF. HE HAS NOT SLEPT MORE THAN 30 MINUTES AT A TIME THROUGHOUT THE NIGHT AND WAS VERBALLY AGGRESSIVE WITH STAFF DURING NIGHT. THIS RN SITS OUTSIDE OF ROOM TO ASSIST PATIENT IN REMAINING IN BED AND TO REORIENT HIM NEEDED. WILL REMAIN AVAILABLE FOR THIS PATIENT FOR ANY WANTS OR NEEDS THAT COME UP PRIOR TO SHIFT CHANGE.
[2022-07-07 05:51] LABS: Hematocrit 25.2 % (37.0-53.0); Hemoglobin 8.3 g/dL (13.5-17.5); Mean Corpuscular HGB 31.2 pg (26.0-34.0); Mean Corpuscular HGB Conc 32.9 g/dL (31.5-36.5); Mean Corpuscular Volume 95 fL (80-100); Mean Platelet Volume 9.3 fL (9.1-12.4); NRBC ABSOLUTE 0.07 K/mm3 (0.00-0.02); NRBC Auto 0.4 /100 WBC (0.0-0.2); Platelet Count 240 K/mm3 (150-400); RDW Coefficient Variation 15.4 % (11.7-14.2); RDW Standard Deviation 52.1 fL (35.1-46.3); Red Blood Cell Count 2.66 M/mm3 (4.30-5.90); White Blood Cell Count 17.12 K/mm3 (4.00-11.30)
[2022-07-07 06:22] LABS: Bun/Creatinine Ratio 16.7 (12.0-20.0); Calcium, Blood 8.5 mg/dL (8.5-10.1); Creatinine, Blood 2.75 mg/dL (0.60-1.20); Potassium, Blood 4.5 mmol/L (3.5-5.5)
[2022-07-07] MEDS ORDERED: AMITRIPTYLINE100 M2 PO (08:19)
[2022-07-07] MEDS ORDERED: LIVALO2 MG PO (08:21)
[2022-07-07] MEDS ORDERED: GUAI600T33 PO (08:22)
[2022-07-07] MEDS ORDERED: CEPH500 PO (08:23)
[2022-07-07] MEDS ORDERED: TRAM50 PO (09:38)
--- NOTE | 2022-07-07 10:16 | NUR ---
HAIR DRYER CALLED AND REPORTED PT SINUS WITH ATRIAL ESCAPE WITH RATE 90-100'S. DR UNGER NOTIFIED.
--- NOTE | 2022-07-07 17:33 | NUR ---
SHIFT SUMMARY- PT A/OX3, FORGETFUL AND IRRITABLE AT TIMES. PT MEDICATED WITH TRAMADOL FOR CHRONIC BACK PAIN. LS DIMINISHED ON 6L, PT AT 6-8L AT HOME WITH OCCASIONALLY INCREASING TO 10L, PER PT HE USES A CPAP AT HOME WELL. CONT BIOX IN PLACE. SOB AT REST AND WITH EXERTION HOWEVER PT REPORTS THIS IS HIS BASELINE. TELE SR AT 90-100 BUT ALSO HAD SINUS WITH ATRIAL ESCAPE NOTED THIS AM. 1+ BLE EDEMA. SBA UP TO BATHROOM. FAMILY AT BEDSIDE T/O THE DAY. HOME MEDICATIONS CLARIFIED AND ORDERED. NO OTHER ACUTE CHANGES THIS SHIFT.
--- NOTE | 2022-07-08 04:17 | NUR ---
SHIFT SUMMARY; PATIENT SLEPT MOST OF NIGHT. ONLY WAKING TO USE URINAL X 2 DURING NIGHT. HE IS AO X 4 TONIGHT AND HAS PLEASANT AFFECT. HIS LUNGS ARE DIM BUT CLEAR THROUGHOUT. HIS ABDOMEN IS DISTENDED AND PER PATIENT THIS IS NORMAL FOR HIM, HE DENIES ANY PAIN OR DISCOMFORT AT THIS TIME. HIS B/P IS SLIGHTLY ELEVATED. PATIENT REMAINS ON 6 LITERS O2 EVEN AT REST TONIGHT AND SATS ARE 90 TO 93%. WILL CONINTUE MONITOR THIS PATIENT CLOSELY FOR ANY WANTS OR NEEDS THAT COME UP PRIOR TO SHIFT CHANGE AND REPORT TO DAY SHIFT RN.
[2022-07-08 05:41] LABS: Albumin, Blood 2.6 g/dL (3.4-5.0); Anion Gap 8 mmol/L (6-16); Blood Urea Nitrogen 52 mg/dL (8-24); Bun/Creatinine Ratio 20.1 (12.0-20.0); CO2, Blood 35 mmol/L (21-32); Calcium, Blood 8.4 mg/dL (8.5-10.1); Chloride, Blood 95 mmol/L (98-108); Creatinine, Blood 2.59 mg/dL (0.60-1.20); Glomerular Filtration Rate 25 (60-); Glucose, Blood 194 mg/dL (70-99); Phosphorus, Blood 5.6 mg/dL (2.5-4.9); Potassium, Blood 4.1 mmol/L (3.5-5.5); Sodium, Blood 138 mmol/L (136-145)
--- NOTE | 2022-07-09 03:53 | NUR ---
Tessie HAD A VERY RESTFUL NIGHT. MEDICATED ONCE AT HS WITH 100MG TRAMADOL FOR HIS CHRONIC BILATERAL FOOT AND LEG PAIN, HE HAD NO FURTHER COMPLAINTS OF DISCOMFORT OVERNIGHT. A&OX4, TESSIE WAS PLEASANT AND COOPERATIVE WITH CARE THROUGHOUT THE SHIFT. LOOKING FORWARD TO DISCHARGE LATER TODAY.
--- NOTE | 2022-07-09 09:32 | NUR ---
FAMILY AT BEDSIDE HELPFUL, PATIENT HOPING TO BE DISCHARGED HOME, COOPERATIVE TO CARE PRESENTLY, CALL LIGHT WITH IN REACH, ÁNGEL
--- NOTE | 2022-07-09 10:29 | NUR ---
DR UNGER IN SEEING PATIENT, FAMILY AT [facility], PATIENT TO BE DISCHARGED HOME
--- NOTE | 2022-07-09 12:19 | NUR ---
1123 PATIENT DISCHARGED VIA W/C. PATIENT, , AND GRANDAUGHTER STATED UNDERSTANDING OF DISCHARGE INSTRUCTIONS, MEDICATIONS, GLUCOMETER, AND FOLLOW UP NEEDS.
== END 2022-07-09 11:23 | disposition home or self-care (01) | DRG 291 ==
LOC: MEDS 13:38
PROVIDERS: Internal Medicine; Nurse Practitioner Acute Care; ADMIT Internal Medicine
DX: I13.0 Hypertensive heart and chronic kidney disease with heart failure and stage 1 through stage 4 chronic kidney disease, or unspecified chronic kidney disease (principal); I50.33 Acute on chronic diastolic (congestive) heart failure; N17.9 Acute kidney failure, unspecified; J96.11 Chronic respiratory failure with hypoxia; N18.30 Chronic kidney disease, stage 3 unspecified; I73.9 Peripheral vascular disease, unspecified; Z66 Do not resuscitate; R73.9 Hyperglycemia, unspecified; T38.0X5A Adverse effect of glucocorticoids and synthetic analogues, initial encounter; Z51.5 Encounter for palliative care; J84.10 Pulmonary fibrosis, unspecified; E78.00 Pure hypercholesterolemia, unspecified; Z74.09 Other reduced mobility; E66.01 Morbid (severe) obesity due to excess calories; K21.9 Gastro-esophageal reflux disease without esophagitis; Z86.16 Personal history of COVID-19; Z98.890 Other specified postprocedural states; Z79.899 Other long term (current) drug therapy; Z79.52 Long term (current) use of systemic steroids
CPT/HCPCS: 36415; 71045; 80048; 80053; 80069; 82947; 83880; 84145; 84484; 85025; 85027; 94760; 94762; 96372; 96374; 96376; 97110; 97116; 97162; 97165; 97530; A9270; G0378; G0379; J1644; J1815; J7512

== ENCOUNTER → 2022-09-13 | Outpatient (CLI) | payer MEDICARE, OTHER ==
[~2022-09-13] MED LIST changes: +AMITRIPTYLINE100 M2 PO; +BUMETANIDE2 M6 PO; +CEPH500 PO; +Cellcept500 MG PO; +GLIP2.5ER PO; +LOSARTAN POTASS25 M2 PO; +NYSTATIN100000 U10 PO; +PANTOPRAZOLE SO40 M2 PO
[2022-09-13 18:27] LABS: Protein, Urine Random 66.6 mg/dL (0.0-11.9)
[2022-09-13 18:30] LABS: Creatinine, Urine Random 84.8 mg/dL (27.00-270.00); Protein/Creat Ratio, Ur Random 0.8
== END | disposition home or self-care (01) ==
LOC: LAB SHORT 14:15 → LAB 14:15
PROVIDERS: Internal Medicine Nephrology
DX: N18.32 Chronic kidney disease, stage 3b (principal)
CPT/HCPCS: 82570; 84156